=== PATIENT | female | born 1960 | race Caucasian/White ===

== ENCOUNTER 2016-07-04 11:58 | Day surgery (SDC) | payer BC ==
[2016-07-02 15:23] VITALS: BMI 34.7
[2016-07-04 12:28] VITALS: TEMP 96.1
[2016-07-04] MEDS ORDERED: LACTATED RINGERS 1,000 ML IV ONE (12:30)
[2016-07-04] MEDS ORDERED: PROPOFOL 10 MG/ML 20 ML VIAL IV ONE (13:17)
[2016-07-04] MEDS ORDERED: MIDAZOLAM 2 MG/2 ML VIAL ONE (13:17)
[2016-07-04] MEDS ORDERED: fentaNYL (PF) 50 MCG/ML 2 ML AMP ONE (13:17)
[2016-07-04 13:53] VITALS: BP 133/89; PULSE 86; RESP 18
--- NOTE | 2016-07-04 15:07 | P.PCN ---
Date of Procedure: 07/04/16 Procedure(s) Performed: Procedure: Total colonoscopy. Preoperative diagnosis: Screening for neoplasia. Postoperative diagnosis: Exam within normal limits. Preparation and sedation: Was provided by anesthesia. Brief clinical history: The patient is a 56-year-old female who was scheduled for this evaluation because of family history of colon cancer in her brother and paternal grandmother. Her last exam was around 7 years ago. She has no abdominal complaints, bleeding or anemia. Procedure: With the patient on her left lateral decubitus position and after informed consent and adequate sedation, the perianal area was inspected and it did not show any fissures or fistulas. There were no masses felt on digital rectal examination. The Olympus CFQ 160L video colonoscope was then inserted in the rectum in the usual fashion and advanced to the cecum. The mucosa appeared healthy. No polyps or tumors were seen or any obvious diverticular disease or other pathology. I retroflexed the endoscope in the rectum before the endoscope was withdrawn. The patient tolerated the procedure well. Plan: The patient was reassured. With her family history, I recommended repeat exam in 5 years. She will follow-up with you as planned.
== END 2016-07-04 14:11 | disposition home or self-care (01) ==
LOC: ORWHC2ENDO 11:58
DX: Z12.11 Encounter for screening for malignant neoplasm of colon (principal); F41.9 Anxiety disorder, unspecified; Z80.0 Family history of malignant neoplasm of digestive organs; Z79.1 Long term (current) use of non-steroidal anti-inflammatories (NSAID); Z79.899 Other long term (current) drug therapy
CPT/HCPCS: J2250; J3010; J2704; G0105

== ENCOUNTER 2022-07-19 09:29 | Day surgery (SDC) | payer BC ==
[2022-07-16 14:48] VITALS: BMI 37.8
[~2022-07-19 09:29] MED LIST: LACTATED RINGERS 1,000 ML IV SCH; LIDOCAINE 1% (10MG/ML) FOR IV START INTRADERMA PRN
[2022-07-19 10:32] VITALS: TEMP 97
[2022-07-19] MEDS ORDERED: PROPOFOL 10 MG/ML 20 ML VIAL IV ONE (11:41)
--- NOTE | 2022-07-19 12:07 | P.PCN ---
Date of Procedure: 07/19/22 Procedure(s) Performed: BRIEF HISTORY: Patient is a 62-year-old pleasant white female scheduled for an elective colonoscopy as a part of screening for colon cancer and family history of colon cancer. Her brother was diagnosed with colon cancer at age 45 and father in his 60s. PROCEDURE PERFORMED: Colonoscopy snare polypectomy. PREOPERATIVE DIAGNOSIS: Screening for colon cancer and family history of colon cancer. IV sedation per Anesthesia. PROCEDURE: After informed consent was obtained, the patient, was brought into the endoscopy unit. IV sedation was administered by Anesthesia under continuous monitoring. Digital rectal examination was normal. Initially the Olympus CF-160 flexible video colonoscope was then inserted in the rectum, gradually advanced into the cecum without any difficulty. Careful examination was performed as the scope was gradually being withdrawn. Ileocecal valve and the appendiceal orifice were visualized and appeared normal. Prep was excellent. Mucosa of the cecum, appeared normal. In the ascending colon there was a 7-8 mm sessile polyp removed by snare polypectomy. Rest of the ascending colon, transverse colon, descending colon, sigmoid colon, and rectum appeared normal. Retroflexion was performed in the rectum and no lesions were seen. The patient tolerated the procedure well. IMPRESSION: 7-8 mm ascending colon polyp status post polypectomy Rest of the colon appeared normal RECOMMENDATIONS: Findings of this examination were discussed with the patient well as her family. She was advised to follow with the biopsy results and have a repeat colonoscopy in 5 years.
[2022-07-19 12:38] VITALS: BP 128/80; PULSE 72; RESP 14
== END 2022-07-19 12:55 | disposition home or self-care (01) ==
LOC: ORWHC2ENDO 09:29
PROVIDERS: ATTEND Internal Medicine Gastroenterology
DX: Z12.11 Encounter for screening for malignant neoplasm of colon (principal); K63.5 Polyp of colon; F41.9 Anxiety disorder, unspecified; F32.A Depression, unspecified; Z80.0 Family history of malignant neoplasm of digestive organs; Z79.899 Other long term (current) drug therapy
CPT/HCPCS: 45385; J2704; 88305

== ENCOUNTER 2022-12-30 19:46 | Outpatient (CLI) | payer BC | END 2022-12-31 06:00 | disposition home or self-care (01) | LOC: 3 N SLEEP 19:46 | PROVIDERS: ATTEND Internal Medicine Critical Care Medicine | DX: G47.33 Obstructive sleep apnea (adult) (pediatric) (principal); Z87.891 Personal history of nicotine dependence | CPT/HCPCS: 95811 ==